=== PATIENT | female | born 1975 | race Caucasian/White ===

== ENCOUNTER → 2018-02-05 14:38 | Outpatient (CLI) | payer OTHER, SELFPAY ==
--- NOTE | 2018-02-05 14:44 | RAD_ITS ---
STUDY: X-RAY - RIGHT KNEE REASON FOR EXAM: Pain. TECHNIQUE: 4 view(s) of the knee. COMPARISON: None. FINDINGS: Normal visualized distal femur. Normal visualized proximal tibia and fibula. Normal proximal tibiofibular articulation. Normal medial femorotibial compartment. Normal lateral femorotibial compartment. Normal patellofemoral articulation. The soft tissue structures are unremarkable. RAD/Knee 4 or More Views IMPRESSION: Normal x-ray examination of the right knee. Electronically Signed: Trse Tee MD at 15:32 EDT Tel , Service support ,
--- NOTE | 2018-02-05 14:44 | RAD_ITS ---
STUDY: X-RAY - LEFT KNEE REASON FOR EXAM: Pain. TECHNIQUE: 4 view(s) of the knee. COMPARISON: None. FINDINGS: Normal visualized distal femur. Normal visualized proximal tibia and fibula. Normal proximal tibiofibular articulation. Normal medial femorotibial compartment. Normal lateral femorotibial compartment. Normal patellofemoral articulation. The soft tissue structures are unremarkable. RAD/Knee 4 or More Views IMPRESSION: Normal x-ray examination of the left knee. Electronically Signed: Tres Tee MD at 15:32 EDT Tel , Service support ,
== END ==
PROVIDERS: Family Provider Family Medicine; PCP Family Medicine; Visit Provider Orthopaedic Surgery
DX: M25.561 Pain in right knee (principal); M25.562 Pain in left knee
CPT/HCPCS: 73564

== ENCOUNTER 2020-09-05 20:24 | Emergency (ER) | payer OTHER, SELFPAY ==
[2019-11-02 08:32] VITALS: BMI 36.3
[2020-09-05 20:25] VITALS: BP 178/83; PULSE 74; RESP 16; TEMP 36.2; O2SAT 100; BMI 35.9
--- NOTE | 2020-09-05 20:43 | RAD_ITS ---
HISTORY: NEAR FALL TODAY, LBP, BILATERAL HIP PAIN COMPARISON: None FINDINGS: # of images incl. paperwork: 3 XR Spine Lumbar 2 or 3 Views: Lumbar vertebral bodies are normal in height. Lumbar disc spaces are well maintained. No acute lumbar spine fracture or subluxation. Minimal degenerative change. This is manifested by few small anterior enthesophytes. Some facet arthropathy within the lower lumbar spine.. RAD/Lumbar Spine 2 or 3 Views IMPRESSION: No acute lumbar spine fracture or subluxation. at 2124 Reported and signed by: David Iraheta MD Electronically Signed: David Iraheta MD at 21:23 EST Tel , Service support ,
--- NOTE | 2020-09-05 20:43 | RAD_ITS ---
HISTORY: NEAR FALL TODAY, BILATERAL HIP PAIN ADDITIONAL HISTORY: None provided. EXAMINATION/TECHNIQUE: XR Pelvis 1 or 2 Views Number of images including paperwork: 1 COMPARISON: None FINDINGS: BONES: No acute fracture. JOINTS: No subluxation. Degenerative changes of the sacroiliac joints. SOFT TISSUES: No distinct foreign body. RAD/Pelvis 1 or 2 Views IMPRESSION: No acute osseous abnormality. at 2119 Reported and signed by: Elizabeth Beckford MD Electronically Signed: Elizabeth Beckford MD at 21:19 EST Tel , Service support ,
--- NOTE | 2020-09-05 20:47 | ED.DCSUM_ITS ---
- ER Visit Summary Date of Service: 09/05/20 Chief Complaint: Back pain History of Present Illness: The patient is a 45 F who sees Rojas Quiles. She reports that she was hanging laundry when she backed into a inversion table and nearly fell. States that she has had gradually increasing low back pain. She describes it as a dull pain is 10 on 10 at worst 9-10 currently. Is worsened by movement. She is not taken anything for pain. There is no radiation to her legs. No problems with her bowels or bladder. No groin numbness. She reports that she has had similar symptoms previously when my pelvis shifted. Physical Examination: Vitals: Stable. Afebrile. General: A&O x 3. NAD. Cardiovascular exam: Regular rate and rhythm, no murmur, rub or gallop. Respiratory exam: Clear to auscultation bilaterally. No wheezes or stridor. Abdominal exam: Soft, nontender, nondistended, normal bowel sounds. No peritoneal signs. Back: Diffuse moderate tenderness to palpation over the lumbar spine and the paraspinous musculature in the lumbar region. No point tenderness. Negative straight leg bilaterally. 5/5 DF, PF, EHL bilaterally. Normal sensation to light touch throughout. Extremity: No clubbing, cyanosis, or edema. Test Results: LS-spine x-rays and pelvis x-ray showed no acute disease. Emergency Department Course and Treatment: An [facility] report was obtained which shows no opiates for the past year. Patient was treated oxycodone here. Treatment Plan: Patient be discharged prescription for 12 oxycodone. Instructed to follow-up with her primary care physician in 3 to 5 days if not improving. Symptomatic care with a heating pad and TENS unit was discussed. Patient is instructed to begin taking her MiraLAX to prevent constipation with the pain medications. The signs and symptoms of cauda equina syndrome were discussed. She is instructed to return for these. Disposition: To home in improved and stable condition. Impression: 1. Low back pain, acute. This note was generated with [employer] software. It may contain incorrect words, spelling, and punctuation that were not noted in review of the chart prior to signing ED Disposition - Plan for ED Patient: Instructions: ED Back Pain Acute or Chronic Prescriptions: Oxycodone HCl/Acetaminophen [Percocet 5/325] 1 tablet PO Q6H PRN PRN 3 Days #12 tablet PRN Reason: Pain Referrals: Luis Carlos Rosado GERIATRIC CASE MANAGER, GERIATRIC CASE MANAGER-C [Primary Care Provider] - 3-5 Days if not improving
[2020-09-05] MEDS: oxyCODONE 5 MG Tablet 10 MG PO (21:16)
[2020-09-05 21:30] VITALS: RESP 16
== END 2020-09-05 21:48 | disposition home or self-care (01) ==
LOC: ED 20:50
PROVIDERS: Emergency Provider Emergency Medicine; PCP Nurse Practitioner Family
DX: M54.5 Low back pain (principal); K21.9 Gastro-esophageal reflux disease without esophagitis; E78.00 Pure hypercholesterolemia, unspecified
CPT/HCPCS: 72100; 72170; 99282

== ENCOUNTER → 2021-06-03 08:04 | Outpatient (CLI) | payer OTHER, SELFPAY ==
--- NOTE | 2021-06-03 08:20 | RAD_ITS ---
STUDY: X-RAY - ESOPHAGUS (BARIUM SWALLOW) WITH FLUOROSCOPY REASON FOR EXAM: Female, 46 years old. GERD TECHNIQUE: 17 view(s) of the esophagus were obtained following swallowing of barium. FLUOROSCOPY TIME (if supplied): (25 seconds) minutes/seconds COMPARISON: None. FINDINGS: There is no demonstrated esophageal foreign body. There is no demonstrated stricture or mucosal abnormality. Normal gastroesophageal junction, without a demonstrated hiatal hernia. The patient ingested a 12 mm tablet of barium without any difficulty. Normal visualized aortic arch and descending thoracic aorta. Normal visualized pulmonary parenchyma. Normal visualized osseous structures of the thorax. RAD/Esophagus Dual Contrast IMPRESSION: Normal plain film x-ray examination (barium swallow) of the esophagus. Electronically Signed: Hung Conti MD at 9:21 EDT , Service support ,
== END ==
PROVIDERS: PCP Nurse Practitioner Family; Referring Provider Otolaryngology; Visit Provider Otolaryngology
DX: K21.9 Gastro-esophageal reflux disease without esophagitis (principal)
CPT/HCPCS: 74221

== ENCOUNTER → 2021-09-21 | Outpatient (CLI) | payer OTHER, SELFPAY | END | disposition home or self-care (01) | PROVIDERS: PCP Nurse Practitioner Family; Visit Provider Physician Assistant | DX: U07.1 COVID-19 (principal) | CPT/HCPCS: 87635; U0005; U0003 ==

== ENCOUNTER 2021-09-24 11:43 | Outpatient (CLI) | payer OTHER, SELFPAY ==
[2021-09-24] MEDS: 0.9% Saline Lock 10 ML Syringe IV ×2 (11:58→12:15)
[2021-09-24 12:00] VITALS: BP 141/82; PULSE 56; RESP 16; TEMP 36.8; O2SAT 100; BMI 33.1
--- NOTE | 2021-09-24 12:10 | NURSING ---
PT CALLED OUT C/O OF TIGHT CHEST. INUFSION STOPPED. PT NOTED TO BE FLUSHED. PT THEN NOTED THAT PAIN IN LOWER BACK WAS 6/10 TIGHT, PAIN MOVED DOWN LEGS AND THEN DOWN ARMS. AFTER 5 MIN PAIN DOWN TO 2/10.
[2021-09-24 12:14] VITALS: BP 150/93; PULSE 62; RESP 18; O2SAT 100
[2021-09-24] MEDS: MethylPREDNISolone 125 MG/2 ML Vial IV (12:15)
--- NOTE | 2021-09-24 12:30 | NURSING ---
INFUSION RUNNING AGAIN THIS TIME WITH NO BACK PAIN OR ADVERSE REACTION.
[2021-09-24 13:09] VITALS: BP 150/92; PULSE 60; RESP 16; TEMP 36.8; O2SAT 98
[2021-09-24 13:55] VITALS: BP 150/90; PULSE 58; RESP 16; TEMP 36.7; O2SAT 100
== END 2021-09-24 14:34 | disposition home or self-care (01) ==
LOC: MS3OUT 11:44 → MS3 11:44
PROVIDERS: PCP Nurse Practitioner Family; Referring Provider Nurse Practitioner Adult Health; Visit Provider Nurse Practitioner Adult Health
DX: Z23 Encounter for immunization (principal); U07.1 COVID-19
CPT/HCPCS: J7050; M0245; Q0245; A4216

== ENCOUNTER → 2021-09-29 | Outpatient (CLI) | payer OTHER, SELFPAY | END | disposition home or self-care (01) | LOC: LABSPEC 13:11 | PROVIDERS: PCP Nurse Practitioner Family; Referring Provider Physician Assistant Medical; Visit Provider Physician Assistant Medical | DX: U07.1 COVID-19 (principal) | CPT/HCPCS: 87635; U0005; U0003 ==